=== PATIENT | male | born 1955 | race African-American/Black ===

== ENCOUNTER 2017-12-11 18:08 | Inpatient (IN) ==
[2017-12-11] MEDS ORDERED: LORazepam 1 MG Tablet PO PRN (22:40)
[2017-12-11] MEDS ORDERED: Aluminum/Magnesium/Simethacone Susp 30 ML UDC PO PRN (22:40)
[2017-12-11] MEDS ORDERED: Acetaminophen 325 MG Tablet PO PRN (22:40)
[2017-12-12] MEDS ORDERED: Lidocaine 5% Patch T-DERMAL PRN (09:27)
--- NOTE | 2017-12-12 09:27 | P.HPPSY ---
Provisional Diagnosis Admission Date: December 11, 2017 21:15 [place] I.: 1. Major depressive disorder, recurrent, moderate Rule-out component of drug-induced mood disorder Rule-out component of mood disorder due to GMC (e.g. hyperthyroidism) 2. Polysubstance abuse [place] II.: Deferred Competence Certification of Person's Competence To Provide Express and Informed Consent I have personally examined Asa Teresa, a person being served at [facility] on, December 12, 2017 0924. Express and informed consent means consent voluntarily given in writing, by a competent person, after sufficient explanation and disclosure of the subject matter involved to enable the person to make a knowing and willful decision without any element of force, fraud, deceit, duress, or other form of constraint or coercion. This person is 18 years of age or older, is not now known to be incompetent to consent to treatment with a guardian advocate, and does not have a health care surrogate or proxy currently making medical treatment decisions. I have found this person to be one of the following: [X] Competent to provide express and informed consent, as defined above, for voluntary admission to this facility and is competent to provide express and informed consent for treatment. He/she has the consistent capacity to make well reasoned, willful, and knowing decisions concerning his or her medical or mental health treatment. The person fully and consistently understands the purpose of the admission for examination/placement and is fully capable of personally exercising all rights assured [place] [] Incompetent to provide express and informed consent to voluntary admission, and this is incompetent to provide express and informed consent to treatment. The person must be transferred to involuntary status and a petition for a guardian advocate filed with the Circuit Court. [] Refusing to provide express and informed consent to voluntary admission but is competent to provide express and informed consent for treatment. The person must be discharged or transferred to involuntary status. Form shall be completed within 24 hours of a person's arrival at the receiving facility and filed in the clinical record of each person: 1. Admitted on a voluntary basis 2. Permitted to provide express and informed consent to his/her own treatment 3. Allowed to transfer from involuntary to voluntary status 4. Prior to permitting a person to consent to his or her own treatment after having been previously found incompetent to consent to treatment. History of Present Illness Capacity: Has capacity Chief Complaint: Depression History of Present Illness: Mr. Teresa is a 61-year-old male with a reported history of depression who presents in transfer from [facility] under a [facility] act. Documentation from outside hospital reviewed. Patient presented there complaining of depression and suicidal ideation. He told the ED provider that he was in "a dark place" he also told the ED provider that "I feel like I have daily conversations with the devil who tells me to kill myself." Reviewing the electronic medical record, I note that the patient was seen in the ED for psychiatric complaints in the mid 1999s. Patient seen and examined with nurse. Chart reviewed. Case discussed with nursing staff. No behavioral issues noted overnight. On my examination today, the patient says that he stopped taking his psychotropic medications about 3 weeks ago because he was feeling depressed and "I stopped giving a damn." He says that he has been experiencing low mood for at least this long and has been struggling with some intermittent suicidal thoughts. He denies any suicidal ideation, intent or plan at this time. He does say that he feels "doomed" and says that he is "not at a place I want to be in the life." He says that he feels "depression on my spirit." Despite this, the patient is fairly future oriented. Patient describes no hypomanic or manic symptoms. He denies any audiovisual hallucinations, and it seems that his comments to ED provider regarding conversing with the devil may have been more metaphorical in nature. No delusional material. Remainder of the psychiatric ROS is negative. No acute physical complaints. Past psychiatric history: The patient reports a history of depression. He is not presently under the care of a psychiatrist. He most recently was taking Seroquel 50 mg in the morning and 100 mg at bedtime along with Zoloft 100 mg daily and BuSpar at uncertain dose 3 times a day. He felt like these medications, especially the Zoloft, were helping somewhat. He does note that he did experience significant diarrhea when initiating the Zoloft, and we discuss initiating this medication instead of the lower dose. He also found that the daytime dose of Seroquel was too sedating. He reports that he was psychiatrically admitted about 3 weeks ago but only stayed for 2 or 3 days. He denies a history of suicide attempts. He denies a history of violent behavior. Family history: The patient reports that his brother has some sort of mental illness. He denies a family history of suicide. Chemical dependency history: The patient reports that he drinks 7 or 8 beers along with a quantity of liquor daily. His last drink was on Sunday. He denies any history of withdrawal seizures or DTs. Prior to relapsing to alcohol a few weeks ago he had had 2 months of sobriety. His longest sober time is 5 years in a monitored setting and 6 months when unmonitored. He does not describe any withdrawal symptoms presently. He also endorses abuse of powder cocaine. Social history: The patient has 2 children and several grandchildren with whom he has limited contact. He has his GED. He previously had SSI but lost it secondary to working he says. He denies a history of service. Denies any legal history. Denies any access to guns or firearms. He believes in God. He initially denies a history of abuse but then says that he saw a man get killed when the patient was for 7 years old. He does not describe any PTSD symptoms at this time. Past medical history: Includes a history of seizure disorder on Dilantin, hyperthyroidism on methimazole and genital herpes. The patient has been nonadherent with all of his medications including his antiepileptic and methimazole. Allergies: No known allergies. - Inpatient Certification I certify that the inpatient services were ordered in accordance with Medicare regulations governing the order. This includes certification that hospital inpatient services are reasonable and necessary and in the case of services not specified as inpatient-only under 42 CFR 419.22(n), that they are appropriately provided as inpatient services in accordance to with the 2-midnight benchmark under 43 CFR 412.3(e) I certify that inpatient psychiatric hospital services are medically necessary. Evaluation and treatment and/or diagnostic testing are expected to improve the patient's condition. The patient needs on a daily basis, active treatment furnished directly by or requiring the supervision of inpatient psychiatric facility personnel. Estimated Total Length of Stay (Days): 5 (3-5) Plans for Post Hospital Care: Not yet determined Review of Systems All other systems reviewed negative except as stated in HPI PMFSH - History History Provided By: Patient - Tobacco History Second Hand Smoke Exposure: Yes Tobacco Use In Past 30 Days: Yes Smoking Status: Smoker, status unknown Tobacco Type: Cigarettes - Alcohol History How Often Do You Have a Drink Containing Alcohol: 4 or more times a week - Substance Use History Substance History: Active Abuse - Substance Use Type Crack/Cocaine Status: Active Route Used: Inhalation Reason for Use: Feels Good Marijuana Status: Active Route Used: Inhalation Reason for Use: Feels Good, Get High - Travel History Recent Travel in the USA Within the Last 8 Weeks: No Recent Travel Out of the Country Within the Last 8 Weeks: No - Immunization History Tetanus Immunization: <5 Years Hx Influenza Vaccine This Season: No Quality Measures - Patient Strengths Patient's strengths (minimum of 2): In a monitored setting. Verbally fluent. Medications and Allergies Active Medications: Active Medications Acetaminophen (Tylenol) 650 mg PO Q4H PRN PRN Reason: Pain 1-5 or Temp >101F Last Admin: 12/11/17 23:22 Dose: 650 mg Al Hydrox/Mg Hydrox/Simethicone (Mag-Al Plus Susp Liq) 30 ml PO Q6H PRN PRN Reason: DYSPEPSIA Al Hydroxide/Mg Hydroxide (Milk Of Magnesia Liq) 30 ml PO DAILY PRN PRN Reason: CONSTIPATION Diphenhydramine HCl (Benadryl) 50 mg PO HS PRN PRN Reason: INSOMNIA Diphenhydramine HCl (Benadryl Inj) 50 mg IM HS PRN PRN Reason: INSOMNIA Lorazepam (Ativan) 1 mg PO Q6H PRN PRN Reason: MODERATE TO SEVERE ANXIETY Lorazepam (Ativan Inj) 1 mg IM Q6H PRN PRN Reason: MODERATE TO SEVERE ANXIETY Nicotine (Habitrol 21 Mg Patch.24 Hr) 1 patch T-DERMAL DAILY [facility] Patch Removal (Remove Old Patch) 1 each T-DERMAL HS [facility] Last Admin: 12/12/17 04:27 Dose: Not Given Allergies Allergy/AdvReac Type Severity Reaction Status Date / Time No Known Allergies Allergy Unverified 12/11/17 21:29 Home Medications Medication Instructions Recorded Confirmed Type cyclobenzaprine 10 tab PO TID PRN 12/12/17 12/12/17 History ibuprofen 600 tab PO Q6HR PRN 12/12/17 12/12/17 History lidocaine [Lidoderm] 1 patch TOPICAL DAILY PRN 12/12/17 12/12/17 History lisinopril-hydrochlorothiazide 10 - 12.5 tab PO DAILY 12/12/17 12/12/17 History methimazole 10 tab PO DAILY 12/12/17 12/12/17 History methylprednisolone 4 mg PO DAILY 12/12/17 12/12/17 History phenytoin sodium extended 100 mg PO TID 12/12/17 12/12/17 History quetiapine 50 tab PO DAILY 12/12/17 12/12/17 History quetiapine 100 tab PO HS 12/12/17 12/12/17 History sertraline 25 tab PO DAILY 12/12/17 12/12/17 History tamsulosin 0.4 1.73 m2 PO DAILY 12/12/17 12/12/17 History Results - Labs Labs: Labs from outside hospital reviewed: CBC reveals mild leukopenia, WBC 3.86 BMP unremarkable PHT, APAP, Salicylate, EtOH all undetectable TSH low. Free T4 illegible. UTox +Cocaine Exam Vital signs: Vital Signs 12/12/17 05:30 Temperature 97.8 F Pulse Rate 99 H Respiratory Rate 18 Blood Pressure 168/75 H Pulse Oximetry 99 Intake & Output 12/11/17 12/12/17 12/12/17 18:59 06:59 18:59 Weight 60 kg Other: Weight On Admission 60 kg Narrative: Physical examination completed by ED provider at referring hospital. On my examination today, the patient appears to be in no acute physical distress. No motor abnormalities noted. No signs of intoxication or withdrawal noted. Labs and vital signs reviewed: Mental Status Examination Appearance: Appropriate Consciousness: Alert Orientation: x4 Motor Activity: Normal gait Speech: Unremarkable Language: Adequate Fund of Knowledge: Adequate Attention and Concentration: Adequate Memory: Unremarkable (Grossly intact on clinical exam) Mood: Other (Depressed) Affect: Other (Restricted) Thought Process & Associations: Intact, Logical, Linear Thought Content: Appropriate Hallucination Type: None Delusion Type: None Suicidal Ideation: No Suicidal Plan: No Suicidal Intention: No Homicidal Ideation: No Homicidal Plan: No Homicidal Intention: No Insight: Fair Judgment: Impulsive Assessment and Plan - Assessment (1) Major depressive disorder, recurrent, moderate Code(s): F33.1 - Major depressive disorder, recurrent, moderate Status: Acute (2) Polysubstance abuse Code(s): F19.10 - Other psychoactive substance abuse, uncomplicated Status: Acute - Plan Plan: 61-year-old male with psychiatric history as detailed above who presents in transfer from outside hospital under a [facility] act. On my examination today, the patient endorses several weeks of depressive symptoms exacerbated by medication nonadherence. The patient has been experiencing intermittent suicidal ideation although he denies any SI now. Patient also has substance use issues. There may be some component of drug-induced mood disorder or perhaps mood disorder related to general medical condition namely untreated hyperthyroidism. Patient requires psychiatric hospitalization at this time for safety, observation and stabilization. Admit inpatient. Voluntary status. Resume Zoloft 50 mg daily for management of low mood augmented with Seroquel 100 mg at bedtime. Resume BuSpar 10 mg 3 times a day. Atarax as needed for anxiety. Benadryl as needed for sleep. R/B/ A for medications discussed with patient. I will resume the patient's Dilantin and methimazole and consult the hospitalist for further management. Check CBC, CMP, FT4. CIWA scale with Ativan for the management of any withdrawal. Seizure precautions. Thiamine and folate. Vitals every shift. Counselor to see. Disposition planning. Estimated length of stay: 3-5 days. Justification for Continued Inpatient Stay: See above Discharge Planning: Pending psychiatric stabilization Request Healthcare Surrogate/Guardian Advocate?: No
[2017-12-12] MEDS ORDERED: LORazepam 1 MG Tablet PO PRN (09:35)
[2017-12-12] MEDS: Ibuprofen 600 MG Tablet PO PRN (11:08)
[2017-12-12] MEDS: Phenytoin Sodium 100 MG Capsule PO SCH ×2 (11:09→17:52)
[2017-12-12] MEDS: Multivitamin/Minerals Therapeutic Tablet PO SCH (11:09)
[2017-12-12] MEDS: Folic Acid 1 MG Tablet PO SCH (11:18)
[2017-12-12] MEDS: Sertraline 50 MG Tablet PO SCH (11:18)
[2017-12-12] MEDS ORDERED: Loperamide 2 MG Capsule PO PRN (15:28)
--- NOTE | 2017-12-12 19:08 | P.CON ---
History of Present Illness Service: Hospitalist service Primary Care Provider: No Primary Care Physician Family Provider: No Primary Care Physician Chief Complaint: Anxiety History of Present Illness: The patient is a pleasant 61-year-old male -[place] with a past medical history of hyperthyroidism on methimazole, history of seizures, seizures, HTN, h /o penile herpes. Patient is admitted to inpatient psych unit for further eval and treatment. The hospitalist is consulted for evaluation of hyperthyroidism C, seizures and penile herpes. The patient says he was taking acyclovir before herpes. He says he does not have any lesions, pain, fever or chills at this time. The patient also is refusing denies any inspection says she does not have any lesions at this time. No urinary complaints. No nausea vomiting. Had diarrhea in the morning. Will check C. difficile. We will start Lactinex Review of Systems All other systems reviewed negative except as stated in HPI PMFSH - History History Provided By: Patient - Medical / Surgical Hx Neg / Unobtainable Surgical History: No Previous Surgery - Medical History Medical History: Medical History (Last Updated 12/13/17 @ 00:05 by Elen Raman MD) Exophthalmos HLD (hyperlipidemia) HTN (hypertension) Hyperthyroidism - Surgical History Surgical History: Surgical History (Last Updated 12/13/17 @ 00:06 by Elen Raman MD) No history of previous surgery - Family History Family History: Family History (Last Updated 12/13/17 @ 00:06 by Elen Raman MD) Other Cancer - Tobacco History Second Hand Smoke Exposure: Yes Tobacco Use In Past 30 Days: Yes Smoking Status: Smoker, status unknown Tobacco Type: Cigarettes - Alcohol History How Often Do You Have a Drink Containing Alcohol: 4 or more times a week - Substance Use History Substance History: Active Abuse - Substance Use Type Crack/Cocaine Status: Active Route Used: Inhalation Reason for Use: Feels Good Marijuana Status: Active Route Used: Inhalation Reason for Use: Feels Good, Get High Comment: Patient reports drinking alcohol daily, he also reports smoking cannabis and using powder cocaine "as often as I can." - Travel History Recent Travel in the [place] Within the Last 8 Weeks: No Recent Travel Out of the Country Within the Last 8 Weeks: No - Immunization History Tetanus Immunization: <5 Years Hx Influenza Vaccine This Season: No Medications and Allergies Active Medications: Active Medications Al Hydrox/Mg Hydrox/Simethicone (Mag-Al Plus Susp Liq) 30 ml PO Q6H PRN PRN Reason: DYSPEPSIA Al Hydroxide/Mg Hydroxide (Milk Of Magnesia Liq) 30 ml PO DAILY PRN PRN Reason: CONSTIPATION Buspirone HCl (Buspar) 10 mg PO TID [facility] Last Admin: 12/12/17 17:52 Dose: 10 mg Cyclobenzaprine HCl (Flexeril) 10 mg PO TID PRN PRN Reason: MUSCLE SPASMS Last Admin: 12/12/17 11:09 Dose: 10 mg Diphenhydramine HCl (Benadryl) 50 mg PO HS PRN PRN Reason: INSOMNIA Flumazenil (Romazecon Inj) 0.2 mg IV.PUSH Q1M PRN PRN Reason: OVERSEDATION Folic Acid (Folic Acid) 1 mg PO DAILY [facility] Stop: 12/17/17 09:44 Last Admin: 12/12/17 11:18 Dose: 1 mg Hydrochlorothiazide (Microzide) 12.5 mg PO DAILY [facility] Hydroxyzine HCl (Atarax) 50 mg PO Q6H PRN PRN Reason: ANXIETY Ibuprofen (Motrin) 600 mg PO Q8HR PRN PRN Reason: PAIN SCALE 1-10 Last Admin: 12/12/17 11:08 Dose: 600 mg Lidocaine HCl (Lidoderm 5% Patch.12 Hr) 1 patch T-DERMAL DAILY PRN PRN Reason: BACK PAIN Last Admin: 12/12/17 11:10 Dose: 1 patch Lisinopril (Prinivil) 10 mg PO DAILY [facility] Loperamide HCl (Imodium) 2 mg PO Q4H PRN PRN Reason: DIARRHEA Lorazepam (Ativan) 1 mg PO Q4H PRN PRN Reason: for CIWA 8-10 Lorazepam (Ativan) 2 mg PO Q2H PRN PRN Reason: for CIWA 11-14 Lorazepam (Ativan Inj) 2 mg IV.PUSH Q2H PRN PRN Reason: for CIWA 11-14 Lorazepam (Ativan Inj) 2 mg IV.PUSH Q1H PRN PRN Reason: for CIWA 15-20 Lorazepam (Ativan Inj) 2 mg IV.PUSH Q15M PRN PRN Reason: for CIWA > 20 Lorazepam (Ativan Inj) 1 mg IV.PUSH Q4H PRN PRN Reason: for CIWA 8-10 Methimazole (Tapazole) 10 mg PO DAILY [facility] Multivitamins/Minerals (Theragran-M) 1 tab PO DAILY [facility] Stop: 12/17/17 09:44 Last Admin: 12/12/17 11:09 Dose: 1 tab Nicotine (Habitrol 21 Mg Patch.24 Hr) 1 patch T-DERMAL DAILY [facility] Last Admin: 12/12/17 11:19 Dose: Not Given Patch Removal (Remove Old Patch) 1 each T-DERMAL HS [facility] Last Admin: 12/12/17 04:27 Dose: Not Given Patch Removal (Remove Old Patch) 1 each T-DERMAL BID PRN PRN Reason: BACK PAIN Phenytoin Sodium (Dilantin) 100 mg PO TID [facility] Last Admin: 12/12/17 17:52 Dose: 100 mg Quetiapine Fumarate (Seroquel) 100 mg PO [facility] Sertraline HCl (Zoloft) 50 mg PO DAILY [facility] Last Admin: 12/12/17 11:18 Dose: 50 mg Thiamine HCl (Vitamin B1) 100 mg PO DAILY [facility] Last Admin: 12/12/17 11:18 Dose: 100 mg Allergies Allergy/AdvReac Type Severity Reaction Status Date / Time No Known Allergies Allergy Unverified 12/11/17 21:29 Home Medications Medication Instructions Recorded Confirmed Type cyclobenzaprine 10 tab PO TID PRN 12/12/17 12/12/17 History ibuprofen 600 tab PO Q6HR PRN 12/12/17 12/12/17 History lidocaine [Lidoderm] 1 patch TOPICAL DAILY PRN 12/12/17 12/12/17 History lisinopril-hydrochlorothiazide 10 - 12.5 tab PO DAILY 12/12/17 12/12/17 History methimazole 10 tab PO DAILY 12/12/17 12/12/17 History methylprednisolone 4 mg PO DAILY 12/12/17 12/12/17 History phenytoin sodium extended 100 mg PO TID 12/12/17 12/12/17 History quetiapine 50 tab PO DAILY 12/12/17 12/12/17 History quetiapine 100 tab PO HS 12/12/17 12/12/17 History sertraline 25 tab PO DAILY 12/12/17 12/12/17 History tamsulosin 0.4 1.73 m2 PO DAILY 12/12/17 12/12/17 History Physical Exam Vital signs: Vital Signs 12/12/17 05:30 12/12/17 11:40 12/12/17 17:50 Temperature 97.8 F 98.1 F Pulse Rate 99 H 103 H Respiratory Rate 18 18 Blood Pressure 168/75 H 162/88 H 179/84 H Pulse Oximetry 99 97 Intake & Output 12/12/17 12/12/17 12/13/17 06:59 18:59 06:59 Intake Total 240 / 240 Balance 240 / 240 Weight 60 kg Intake: Oral 240 / 240 Other: Weight On Admission 60 kg Narrative: GENERAL: Skinny 61 yo AA male, appears in nad. SKIN: Warm and dry. HEAD: Atraumatic. Normocephalic. EYES: Exophthalmos. Pupils equal and round. No scleral icterus. No injection or drainage. ENT: No nasal bleeding or discharge. Mucous membranes pink and moist. NECK: Trachea midline. No JVD. CARDIOVASCULAR: Regular rate and rhythm. RESPIRATORY: No accessory muscle use. Clear to auscultation. Breath sounds equal bilaterally. GASTROINTESTINAL: Abdomen soft, non-tender, nondistended. Hepatic and splenic margins not palpable. MUSCULOSKELETAL: Extremities without clubbing, cyanosis, or edema. No obvious deformities. NEUROLOGICAL: Awake and alert. No obvious cranial nerve deficits. Motor grossly within normal limits. Five out of 5 muscle strength in the arms and legs. Normal speech. PSYCHIATRIC: Appropriate mood and affect; insight and judgment normal. Assessment and Plan - Plan 61-year-old male with Anxiety/depression. Management per psychiatry Hyperthyroidism. TSH is low. Restart methimazole. Patient says he is out of medications for approximately a month. Advised compliance and follow-up with PCP and consultants Hypertension. Restart lisinopril. Monitor vital signs Diarrhea. Start probiotic. Check for C. difficile History of denial herpes. In remission at this time. Patient is also refusing physical examinations. Will check UA Thank you for this consultation.
[2017-12-12] MEDS: QUEtiapine 100 MG Tablet PO SCH (21:16)
[2017-12-12] MEDS: Lactobacillus Acidophilus/L. Spores Tablet PO SCH (21:16)
[2017-12-13] MEDS: Ibuprofen 600 MG Tablet PO PRN ×2 (03:45→12:51)
[2017-12-13 04:21] LABS: Bilirubin,Urine Negative (Negative); Clarity,Urine Clear (Clear); Color,Urine Yellow (Yellw/Straw); Glucose,Urine (UA) Negative (Negative); Leukocyte Esterase,Urine Negative (Negative); Mucus,Urine Few /lpf (Occasional); Nitrite,Urine Negative (Negative); Specific Gravity,Urine 1.015 (1.002-1.035); Squamous Epithelial Cell,Urine <1 /hpf (0-5)
[2017-12-13] MEDS: Multivitamin/Minerals Therapeutic Tablet PO SCH (09:22)
[2017-12-13] MEDS: Folic Acid 1 MG Tablet PO SCH (09:22)
[2017-12-13] MEDS: Lactobacillus Acidophilus/L. Spores Tablet PO SCH ×2 (09:23→21:19)
[2017-12-13] MEDS: Phenytoin Sodium 100 MG Capsule PO SCH ×2 (09:27→12:50)
[2017-12-13] MEDS: Sertraline 50 MG Tablet PO SCH (09:29)
[2017-12-13 09:31] LABS: Baso % (Auto) 0.3 % (0.0-2.0); Eos # (Auto) 0.3 th/mm3 (0.0-0.4); Eos % (Auto) 9.4 % (0.0-4.0); Hematocrit 39.6 % (39.0-51.0); Hemoglobin 13.3 gm/dL (13.0-17.0); Lymph # (Auto) 1.1 th/mm3 (1.0-4.8); Lymph % (Auto) 35.1 % (9.0-44.0); Mean Corpuscular HGB Conc 33.6 % (32.0-36.0); Mean Corpuscular Volume 89.4 fL (80.0-100.0); Mean Platelet Volume 7.8 fL (7.0-11.0); Mono # (Auto) 0.4 th/mm3 (0.0-0.9); Mono % (Auto) 13.8 % (0.0-8.0); Neut # (Auto) 1.2 th/mm3 (1.8-7.7); Neut % (Auto) 41.4 % (16.0-70.0); Platelet Count 210 th/mm3 (150-450); Red Blood Count 4.43 mil/mm3 (4.50-5.90); Red Cell Distribution Width 13.8 % (11.6-17.2)
[2017-12-13] MEDS: Lisinopril 10 MG Tablet PO SCH (09:32)
[2017-12-13 09:58] LABS: Albumin 3.1 g/dL (3.4-5.0); Anion Gap 9 meq/L (5-15); Aspartate Aminotransferase 42 U/L (15-37); Blood Urea Nitrogen 19 mg/dL (7-18); Calcium 9.1 mg/dL (8.5-10.1); Carbon Dioxide 27.4 meq/L (21.0-32.0); Chloride 102 meq/L (98-107); Glomerular Filtration Rate Greater Than 89 mL/min (>89); Glucose,Random 161 mg/dL (74-106); Potassium 4.1 meq/L (3.5-5.1); Sodium 138 meq/L (136-145)
[2017-12-13 10:00] LABS: Cholesterol 126 mg/dL (120-200); Triglycerides 114 mg/dL (42-150)
--- NOTE | 2017-12-13 10:01 | P.PN ---
Physical Exam Vital signs: Vital Signs 12/12/17 11:40 12/12/17 17:50 12/13/17 06:10 Temperature 98.1 F 97.3 F L Pulse Rate 103 H 99 H Respiratory Rate 18 18 Blood Pressure 162/88 H 179/84 H 157/83 H Pulse Oximetry 97 97 Intake & Output 12/12/17 12/13/17 12/13/17 18:59 06:59 18:59 Intake Total 240 / 240 Balance 240 / 240 Weight 171 kg Intake: Oral 240 / 240 Narrative: Subjective: In nad No fever or chills. No penile DC or rash. Ambulating Physical exam: GENERAL: Skinny 61 yo AA male, appears in nad. CARDIOVASCULAR: Regular rate and rhythm. RESPIRATORY: No accessory muscle use. Clear to auscultation. Breath sounds equal bilaterally. GASTROINTESTINAL: Abdomen soft, non-tender, nondistended. Hepatic and splenic margins not palpable. MUSCULOSKELETAL: Extremities without clubbing, cyanosis, or edema. No obvious deformities. NEUROLOGICAL: Awake and alert. No obvious cranial nerve deficits. Motor grossly within normal limits. Five out of 5 muscle strength in the arms and legs. Normal speech. PSYCHIATRIC: Appropriate mood and affect; insight and judgment normal. Assessment and Plan - Plan 61-year-old male with Anxiety/depression. Management per psychiatry Hyperthyroidism. TSH is low. Restart methimazole. Patient says he is out of medications for approximately a month. Advised compliance and follow-up with PCP and consultants Hypertension. Better controlled after restarting lisinopril. Monitor vital signs. Diarrhea. Start probiotic. Check for C. difficile, However diarrhea subsided. History of denial herpes. In remission at this time. Patient is also refusing physical examinations. UA no signs of infection Thank you for this consultation. Patient appears stable medically. Patient run out of meds. will prescribe meds at [place] Thank you for this consultation , the hospitalist will sign off Results - Labs CBC & Chem 7: 12/13/17 08:45 12/13/17 08:45 Laboratory Results - last 24 hr 12/13/17 12/13/17 12/13/17 03:50 08:45 08:45 WBC 3.0 L RBC 4.43 L Hgb 13.3 Hct 39.6 MCV 89.4 MCH 30.0 MCHC 33.6 RDW 13.8 Plt Count 210 MPV 7.8 Neut % (Auto) 41.4 Lymph % (Auto) 35.1 [place] % (Auto) 13.8 H Eos % (Auto) 9.4 H Baso % (Auto) 0.3 Neut # (Auto) 1.2 L Lymph # (Auto) 1.1 [place] # (Auto) 0.4 Eos # (Auto) 0.3 Baso # (Auto) 0.0 WBC Differential . Differential Comment Auto diff final Sodium 138 Potassium 4.1 Chloride 102 Carbon Dioxide 27.4 Anion Gap 9 BUN 19 H Creatinine 0.80 Estimated GFR Greater than 89 Random Glucose 161 H Calcium 9.1 AST 42 H Albumin 3.1 L Urine Color Yellow Urine Clarity Clear Urine pH 7.0 Ur Specific [place] 1.015 Urine Protein Negative Urine Glucose (UA) Negative Urine Ketones Negative Urine Occult Blood Negative Urine Nitrate Negative Urine Bilirubin Negative Urine Urobilinogen 2.0 H Ur Leukocyte Esterase Negative Urine WBC Less than 1 Ur Squamous Epith Cells <1 Urine Mucus Few H Micro UA Comment Culture not ind Urine Culture Comments Culture not ind
[2017-12-13 10:05] LABS: Alanine Aminotransferase 64 U/L (12-78); Alkaline Phosphatase 130 U/L (45-117); Chol/HDL Ratio 1.73 Ratio; Free T4 (Free Thyroxine) 3.75 ng/dL (0.76-1.46); HDL Cholesterol 72.6 mg/dL (40.0-60.0); LDL Cholesterol,Calculated 31 mg/dL (0-99); Total Protein 6.4 g/dL (6.4-8.2)
--- NOTE | 2017-12-13 13:38 | ECG ---
Date Performed: 12/12/2017 Time Performed: 13:27:46 PTAGE: 61 years EKG: Sinus rhythm VOLTAGE CRITERIA FOR LVH NONSPECIFIC T-WAVE ABNORMALITY ABNORMAL ECG NO PREVIOUS TRACING DOCTOR: Asa Mata Interpretating Date/Time 12/13/2017 13:34:50
--- NOTE | 2017-12-13 15:14 | P.PNPSY ---
Subjective Chief Complaint: Depression Remarks: Patient seen in his room with nurse Marifer. Chart reviewed. Patient compliant with medications except for the Zoloft which she states is some fairly severe abdominal cramping. He acknowledges his depression he acknowledges his need for an antidepressant and his willingness to take 1 though not the Zoloft. We will discontinue Zoloft and start patient on Lexapro 10 mg daily starting tomorrow. Otherwise continue medications no change patient denies suicidality at this time Review of Systems All other systems reviewed negative except as stated in HPI Mental Status Examination Appearance: Appropriate Consciousness: Alert Orientation: x4 Motor Activity: Normal gait Speech: Unremarkable Language: Adequate Fund of Knowledge: Adequate Attention and Concentration: Adequate Memory: Unremarkable (Grossly intact on clinical exam) Mood: Other (Depressed) Affect: Other (Restricted) Thought Process & Associations: Intact, Logical, Linear Thought Content: Appropriate Hallucination Type: None Delusion Type: None Suicidal Ideation: No Suicidal Plan: No Suicidal Intention: No Homicidal Ideation: No Homicidal Plan: No Homicidal Intention: No Insight: Fair Judgment: Impulsive Assessment and Plan - Assessment (1) Major depressive disorder, recurrent, moderate Code(s): F33.1 - Major depressive disorder, recurrent, moderate Status: Acute (2) Polysubstance abuse Code(s): F19.10 - Other psychoactive substance abuse, uncomplicated Status: Acute - Plan Plan: Patient remains depressed though showing some insight and cooperation. We will discontinue Zoloft and initiate Lexapro 10 mg daily. Patient compliant with his other medications Justification for Continued Inpatient Stay: At this time patient would decompensate a place to a lower level of care Discharge Planning: To be determined Request Healthcare Surrogate/Guardian Advocate?: No
[2017-12-13] MEDS: QUEtiapine 100 MG Tablet PO SCH (21:19)
[2017-12-14] MEDS: Ibuprofen 600 MG Tablet PO PRN (09:41)
[2017-12-14] MEDS: Multivitamin/Minerals Therapeutic Tablet PO SCH (09:46)
[2017-12-14] MEDS: Phenytoin Sodium 100 MG Capsule PO SCH ×4 (09:47→18:13)
[2017-12-14] MEDS: Escitalopram 10 MG Tablet PO SCH (09:47)
[2017-12-14] MEDS: Lisinopril 10 MG Tablet PO SCH (09:48)
[2017-12-14] MEDS: Lactobacillus Acidophilus/L. Spores Tablet PO SCH ×2 (09:49→21:15)
[2017-12-14] MEDS: Folic Acid 1 MG Tablet PO SCH (09:49)
--- NOTE | 2017-12-14 09:57 | P.PNPSY ---
Subjective Chief Complaint: Depression Remarks: Reviewed electronic medical records and discussed case with staff. Follow-up was conducted in patient's room. Patient was found lying in bed awake. Lexapro has been ordered for the patient to start this morning. Reports that he did not sleep very well states that he was "on and off". Reports that his appetite has been good. He says that he feels a little bit jittery believes is to getting back on his thyroid medication. No other complaints at this time. Mental Status Examination Appearance: Appropriate Consciousness: Alert Orientation: x4 Motor Activity: Normal gait Speech: Unremarkable Language: Adequate Fund of Knowledge: Adequate Attention and Concentration: Adequate Memory: Unremarkable (Grossly intact on clinical exam) Mood: Other (Depressed) Affect: Other (Restricted) Thought Process & Associations: Intact, Logical, Linear Thought Content: Appropriate Hallucination Type: None Delusion Type: None Suicidal Ideation: No Suicidal Plan: No Suicidal Intention: No Homicidal Ideation: No Homicidal Plan: No Homicidal Intention: No Insight: Fair Judgment: Impulsive Assessment and Plan - Assessment (1) Major depressive disorder, recurrent, moderate Code(s): F33.1 - Major depressive disorder, recurrent, moderate Status: Acute - Plan Plan: Patient will start on Lexapro today. Continue with current treatment plan and reevaluate medication efficacy. Justification for Continued Inpatient Stay: Moving this patient to a less restrictive environment would likely result in decompensation. New medication being started today. Patient still needs to be psychiatrically stabilized. Request Healthcare Surrogate/Guardian Advocate?: No
[2017-12-14] MEDS: QUEtiapine 100 MG Tablet PO SCH (21:16)
[2017-12-15] MEDS: Lactobacillus Acidophilus/L. Spores Tablet PO SCH ×2 (08:52→21:21)
[2017-12-15] MEDS: Lisinopril 10 MG Tablet PO SCH (08:52)
[2017-12-15] MEDS: Phenytoin Sodium 100 MG Capsule PO SCH ×4 (08:53→18:19)
[2017-12-15] MEDS: Folic Acid 1 MG Tablet PO SCH (08:54)
[2017-12-15] MEDS: Escitalopram 10 MG Tablet PO SCH (08:54)
[2017-12-15] MEDS: Multivitamin/Minerals Therapeutic Tablet PO SCH (08:54)
--- NOTE | 2017-12-15 20:06 | P.PNPSY ---
Subjective Chief Complaint: Depression Remarks: Reviewed electronic medical records and discussed case with staff. Follow-up was conducted in the milieu. Patient reports that he has been "up and down" not sleeping as well as he like to. He states that his appetite has "not been too good". He continues to complain of diarrhea which he feels is due to the medication. I did note patient interacting appropriately with another patient in the milieu before I approached him. Staff feels that his somatic complaint may be more in an effort to discontinue the medication. He again mentions wanting a bus pass to [place]. Mental Status Examination Appearance: Appropriate Consciousness: Alert Orientation: x4 Motor Activity: Normal gait Speech: Unremarkable Language: Adequate Fund of Knowledge: Adequate Attention and Concentration: Adequate Memory: Unremarkable (Grossly intact on clinical exam) Mood: Other (Depressed) Affect: Other (Restricted) Thought Process & Associations: Intact, Logical, Linear Thought Content: Appropriate Hallucination Type: None Delusion Type: None Suicidal Ideation: No Suicidal Plan: No Suicidal Intention: No Homicidal Ideation: No Homicidal Plan: No Homicidal Intention: No Insight: Fair Judgment: Impulsive Assessment and Plan - Assessment (1) Major depressive disorder, recurrent, moderate Code(s): F33.1 - Major depressive disorder, recurrent, moderate Status: Acute - Plan Plan: Patient will be reevaluated Sunday by the attending psychiatrist. Continue with current treatment plan. Justification for Continued Inpatient Stay: Moving this patient to a less restrictive environment would likely result in decompensation. Request Healthcare Surrogate/Guardian Advocate?: No
[2017-12-15] MEDS: QUEtiapine 100 MG Tablet PO SCH (21:21)
[2017-12-15] MEDS: Ibuprofen 600 MG Tablet PO PRN (21:56)
[2017-12-16] MEDS: Multivitamin/Minerals Therapeutic Tablet PO SCH (09:06)
[2017-12-16] MEDS: Folic Acid 1 MG Tablet PO SCH (09:06)
[2017-12-16] MEDS: Lisinopril 10 MG Tablet PO SCH (09:06)
[2017-12-16] MEDS: Lactobacillus Acidophilus/L. Spores Tablet PO SCH ×2 (09:06→20:22)
[2017-12-16] MEDS: Phenytoin Sodium 100 MG Capsule PO SCH ×3 (09:06→18:08)
[2017-12-16] MEDS: Escitalopram 10 MG Tablet PO SCH (09:08)
--- NOTE | 2017-12-16 14:28 | P.PNPSY ---
Subjective Chief Complaint: Depression Remarks: Reviewed electronic medical records and discussed case with staff. Follow-up was conducted in the milieu. Patient was observed visiting with other patients. He reports that he refuses medications this morning because of them causing diarrhea. He states that he slept well and his appetite is been good. She is no indication of internal stimulation nor of thought blocking. His mood has been good at his affect is euthymic. Mental Status Examination Appearance: Appropriate Consciousness: Alert Orientation: x4 Motor Activity: Normal gait Speech: Unremarkable Language: Adequate Fund of Knowledge: Adequate Attention and Concentration: Adequate Memory: Unremarkable (Grossly intact on clinical exam) Mood: Other (Depressed) Affect: Other (Restricted) Thought Process & Associations: Intact, Logical, Linear Thought Content: Appropriate Hallucination Type: None Delusion Type: None Suicidal Ideation: No Suicidal Plan: No Suicidal Intention: No Homicidal Ideation: No Homicidal Plan: No Homicidal Intention: No Insight: Fair Judgment: Impulsive Assessment and Plan - Assessment (1) Major depressive disorder, recurrent, moderate Code(s): F33.1 - Major depressive disorder, recurrent, moderate Status: Acute - Plan Plan: Patient will be reevaluated tomorrow by the attending psychiatrist. Continue with current treatment plan. Justification for Continued Inpatient Stay: Moving this patient to a less restrictive environment would likely result in decompensation. Request Healthcare Surrogate/Guardian Advocate?: No
[2017-12-16] MEDS: Ibuprofen 600 MG Tablet PO PRN (20:22)
[2017-12-16] MEDS: QUEtiapine 100 MG Tablet PO SCH (21:01)
[2017-12-17] MEDS: Folic Acid 1 MG Tablet PO SCH (09:26)
[2017-12-17] MEDS: Lactobacillus Acidophilus/L. Spores Tablet PO SCH ×2 (09:26→21:05)
[2017-12-17] MEDS: Lisinopril 10 MG Tablet PO SCH (09:26)
[2017-12-17] MEDS: Escitalopram 10 MG Tablet PO SCH (09:26)
[2017-12-17] MEDS: Multivitamin/Minerals Therapeutic Tablet PO SCH (09:27)
[2017-12-17] MEDS: Phenytoin Sodium 100 MG Capsule PO SCH ×2 (09:27→21:46)
[2017-12-17] MEDS: Ibuprofen 600 MG Tablet PO PRN ×2 (09:32→21:38)
--- NOTE | 2017-12-17 09:41 | P.PNPSY ---
Subjective Chief Complaint: Depression Remarks: Patient seen and examined with nurse. Chart reviewed. Case discussed with nursing staff. No behavioral issues noted overnight. On my examination today, the patient says that he is feeling much better. He is hopeful for discharge to [place] soon. I have discussed the matter with the meeting planner, and transportation can be arranged to [place] tomorrow. Patient denies SI or HI. He denies AVH. Mood is improved versus admission. We discussed the patient's chemical dependency issues, and I have supported the patient in his desire for sobriety and also encouraged 12 step programming. Patient wishes to discontinue his antidepressant, blaming this agent for diarrhea. He says "I think I can make it without it" referring to the antidepressant. He denies side effects from other medications. He denies any physical complaints and says that he is having formed stools now. Vital Signs Temp Pulse Resp BP Pulse Ox 12/17/17 06:00 98 F 80 18 120/64 96 12/16/17 18:34 98.1 F 88 18 151/71 H 98 Labs reviewed. No new labs. Review of Systems All other systems reviewed negative except as stated in HPI Mental Status Examination Appearance: Appropriate Consciousness: Alert Orientation: x4 Motor Activity: Normal gait, Other (No motor abnormalities noted. No signs of withdrawal noted.) Speech: Unremarkable Language: Adequate Fund of Knowledge: Adequate Attention and Concentration: Adequate Memory: Unremarkable (Grossly intact on clinical exam) Mood: Appropriate Affect: Appropriate Thought Process & Associations: Intact, Logical, Goal directed, Linear Thought Content: Appropriate Hallucination Type: None Delusion Type: None Suicidal Ideation: No Suicidal Plan: No Suicidal Intention: No Homicidal Ideation: No Homicidal Plan: No Homicidal Intention: No Mental Status Exam Remarks: Insight and judgment are fair. Assessment and Plan - Assessment (1) Major depressive disorder, recurrent, moderate Code(s): F33.1 - Major depressive disorder, recurrent, moderate Status: Acute (2) Polysubstance abuse Code(s): F19.10 - Other psychoactive substance abuse, uncomplicated Status: Acute - Plan Plan: Patient seems overall much improved versus my previous contact with him. Discontinue Lexapro per patient preference. I have discussed with patient that there are alternative antidepressant agents from different classes that he might consider, such as mirtazapine. Patient will follow up with outpatient mental health provider regarding these options. Continue other psychotropics as ordered. Continue other medications and care as ordered. Justification for Continued Inpatient Stay: Final discharge planning Discharge Planning: Anticipate discharge tomorrow, Sunday. Request Healthcare Surrogate/Guardian Advocate?: No
[2017-12-17] MEDS: QUEtiapine 100 MG Tablet PO SCH (21:07)
[2017-12-18] MEDS: Phenytoin Sodium 100 MG Capsule PO SCH (08:19)
[2017-12-18] MEDS: Lactobacillus Acidophilus/L. Spores Tablet PO SCH (08:19)
[2017-12-18] MEDS: Lisinopril 10 MG Tablet PO SCH (08:20)
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
== END 2017-12-18 10:05 | disposition home or self-care (01) ==
LOC: H270 21:15 → H260 12-12 10:46
PROVIDERS: ADMIT Psychiatry & Neurology Psychiatry; ATTEND Psychiatry & Neurology Psychiatry